=== PATIENT | male | born 1945 | race Caucasian/White ===

== ENCOUNTER 2023-12-22 10:46 | Emergency (ER) | payer MEDICARE ==
[~2023-12-22] VITALS: Ht 182.9 cm; Wt 89.8 kg
[2023-12-22 11:14] VITALS: TEMP 99.1
[2023-12-22] MEDS ORDERED: CEFUROXIME250 MG PO (12:27)
[2023-12-22] MEDS ORDERED: PIPERACILLIN/TAZOBACTAM 4.5 GM in SODIUM CHLORIDE 0.9% 100 ML IV ONE (12:30)
[2023-12-22] MEDS ORDERED: SODIUM CHLORIDE 0.9% 0 ML ONE (12:35)
[2023-12-22] MEDS: PIPERACILLIN/TAZOBACTAM 4.5 GM in SODIUM CHLORIDE 0.9% 100 ML IV ONE (13:00)
[2023-12-22 13:35] VITALS: PULSE 87; RESP 18; O2SAT 96
== END 2023-12-22 13:35 | disposition home or self-care (01) ==
LOC: FSED 10:50
DX: R50.9 Fever, unspecified (principal); J06.9 Acute upper respiratory infection, unspecified; N39.0 Urinary tract infection, site not specified; E11.65 Type 2 diabetes mellitus with hyperglycemia; I10 Essential (primary) hypertension
CPT/HCPCS: 71046; 81003; 87086; 87186; 99283; J2543 ×2; J7050